=== PATIENT | male | born 1935 | race Caucasian/White ===

== ENCOUNTER → 2018-10-10 | Outpatient (CLI) | payer MEDICARE, OTHER ==
--- NOTE | 2018-10-10 17:31 | RADIOLOGY REPORT (SQ) ---
EXAM DESCRIPTION: VENOUS UNILATERAL LOWER COMPLETED DATE/TIME: 10/10/2018 5:12 pm REASON FOR STUDY: LLE EDEMA/PAIN M79.672 PAIN IN LEFT FOOT R60.0 LOCALIZED EDEMA COMPARISON: None. TECHNIQUE: Dynamic and static falk scale and color images acquired of the left leg venous system. Se lected spectral images acquired with additional compression and augmentation maneuvers. The contralat eral common femoral vein and saphenofemoral junction were also imaged. Images stored on PACS. LIMITATIONS: None. FINDINGS: COMMON FEMORAL: Normal phasicity, compression and augmentation. No visualized echogenic ma terial on falk scale. No defects on color images. FEMORAL: Normal compression and augmentation. No visualized echogenic material on falk scale. No defe cts on color images. POPLITEAL: Normal compression, augmentation. No visualized echogenic material on falk scale. No defec ts on color images. CALF VESSELS: Normal compression, augmentation. No visualized echogenic material on falk scale. No de fects on color images. GSV and SSV: Normal compression, augmentation. No visualized echogenic material on falk scale. No def ects on color images. ANY DEEP VENOUS INSUFFICIENCY: Not evaluated. ANY EVIDENCE OF POPLITEAL CYST: No. OTHER: No other significant finding. CONTRALATERAL COMMON FEMORAL VEIN AND SAPHENOFEMORAL JUNCTION: Normal phasicity, compression and augmentation. No visualized echogenic material on falk scale. No de fects on color images. IMPRESSION: 1. NO EVIDENCE OF DVT OR SVT IN THE LEFT LEG. COMMENT: 1. The results were given to the patient's retail sales professional on 10/10/2018 at 17:10 hours. TECHNICAL DOCUMENTATION: JOB ID: [id number] [employer] All Rights Reserved Reading location - IP/workstation name: [email or web address]
== END ==
LOC: SP 16:00
PROVIDERS: ATTEND Physician Assistant
DX: M79.672 Pain in left foot (principal); R60.0 Localized edema
CPT/HCPCS: 93971